=== PATIENT | female | born 1980 | race American Indian/Alaskan Native ===

== ENCOUNTER 2021-04-08 08:00 | Outpatient (CLI) | payer OTHER | END 2021-04-08 08:30 | disposition home or self-care (01) | LOC: PPH VACUNA 08:00 | DX: Z23 Encounter for immunization (principal) ==

== ENCOUNTER 2021-04-29 08:00 | Outpatient (CLI) | payer OTHER | END 2021-04-29 08:30 | disposition home or self-care (01) | LOC: PPH VACUNA 08:00 | DX: Z23 Encounter for immunization (principal) ==

== ENCOUNTER 2021-11-16 14:27 | Emergency (ER) | payer OTHER ==
[~2021-11-16] VITALS: Ht 157.5 cm; Wt 63.0 kg
[2021-11-16] MEDS ORDERED: ALLEGRA ALLERG180 MG (14:44)
== END 2021-11-16 16:31 | disposition home or self-care (01) ==
LOC: ER 14:27
DX: T78.3XXA Angioneurotic edema, initial encounter (principal)